=== PATIENT | female | born 1990 | race Caucasian/White ===

== ENCOUNTER 2021-06-08 04:04 | Inpatient (IN) | payer OTHER ==
[2021-06-08] MEDS ORDERED: Methylergonovine 0.2 MG/ML VIAL IM PRN (04:27)
[2021-06-08] MEDS ORDERED: Carboprost 250 MCG/ML AMP IM PRN (04:27)
[2021-06-08] MEDS ORDERED: Lidocaine 1% (PF) 30 ML VIAL SC PRN (04:27)
[2021-06-08] MEDS ORDERED: Zolpidem Tartrate 5 MG TAB PO PRN (04:27)
[2021-06-08] MEDS ORDERED: hydrALAZINE 20 MG/ML VIAL SLOW IVP PRN ×2 (04:27→13:40)
[2021-06-08] MEDS ORDERED: Misoprostol 200 MCG TAB PR PRN (04:27)
[2021-06-08] MEDS ORDERED: Diphenoxylate HCl/Atropine Tablet PO PRN (04:27)
[2021-06-08] MEDS ORDERED: Promethazine HCl 25 MG/ML VIAL IM PRN ×2 (04:27→06:02)
[2021-06-08] MEDS ORDERED: Butorphanol Tartrate 1 MG/ML VIAL SLOW IVP PRN (04:27)
[2021-06-08] MEDS ORDERED: Ondansetron PF 4 MG/2 ML Vial IVP PRN ×2 (04:27→06:02)
[2021-06-08] MEDS ORDERED: Ibuprofen 800 MG TAB PO PRN (04:27)
[2021-06-08 04:31] VITALS: BMI 29.6
[2021-06-08 05:04] LABS: Hemoglobin 12.1 g/dL (12.0-15.5); Mean Corpuscular HGB CONC 31.1 g/dL (32.0-36.0); Mean Corpuscular Hemoglobin 27.2 pg (27.0-33.0); Mean Corpuscular Volume 87.4 fl (81.6-98.3); Mean Platelet Volume 11.9 fl (7.4-10.4); Platelet Count 166 10x3/uL (150-450); RBC Distribution Width 13.2 % (11.5-14.5); Red Blood Cell (RBC) Count 4.45 10x6/uL (3.90-5.03); White Blood Cell (WBC) Count 8.3 10x3/uL (3.5-10.5)
[2021-06-08] MEDS ORDERED: Fentanyl 2 mcg/Bup 0.1% Cadd 100 ML ONE (05:04)
[2021-06-08] MEDS ORDERED: Hydrocerin (Eucerin) Cream 120 gm Jar TOP PRN (06:02)
[2021-06-08] MEDS ORDERED: Lactated Ringer's 500 ML IV PRN (06:02)
[2021-06-08] MEDS ORDERED: diphenhydrAMINE 50 MG/ML VIAL IVP PRN (06:02)
[2021-06-08] MEDS ORDERED: Acetaminophen 325 MG TAB PO PRN (06:02)
[2021-06-08] MEDS ORDERED: Naloxone HCl 0.4 mg/ml Vial IVP PRN ×2 (06:02)
[2021-06-08] MEDS ORDERED: ePHEDrine Sulfate 50 MG/10 ML VIAL SLOW IVP PRN (06:02)
[2021-06-08] MEDS ORDERED: Fentanyl 2 mcg/Bupivacaine 0.1% Cassette 100 ML EPIDURAL SCH (06:15)
[2021-06-08] MEDS ORDERED: Communication Order-Pharmacy FS SCH (06:15)
[2021-06-08 06:18] LABS: Syphilis Antibody Nonreactive (Nonreactive); Syphilis Antibody Index 0.05 S/CO (<1.00 Non-Reactive)
[2021-06-08 06:19] LABS: Hep B Surf Ag Non-Reactive S/CO (NonReactive)
[2021-06-08 06:30] LABS: HBSAg Index 0.23 S/CO (0-0.99)
[2021-06-08] MEDS ORDERED: Bupivacaine 0.25% HCL 30 ML VIAL ONE (08:00)
[2021-06-08] MEDS ORDERED: ePHEDrine Sulfate 50 MG/10 ML VIAL ONE (08:00)
[2021-06-08] MEDS: NS w/ Oxytocin 30 units 500 ML IV SCH ×2 (08:19→13:47)
[2021-06-08] MEDS: Lactated Ringer's 1,000 ML IV SCH ×2 (08:22→16:56)
[2021-06-08 08:52] LABS: SARS-CoV-2 NAA Rapid Test DETECTED (NotDetected)
[2021-06-08] MEDS ORDERED: Bisacodyl 10 MG SUPP PR PRN (13:40)
[2021-06-08] MEDS ORDERED: Milk Of Magnesia 30 ML UDCUP PO PRN (13:40)
[2021-06-08] MEDS ORDERED: traMADol HCl 50 MG TAB PO PRN (13:40)
[2021-06-08] MEDS ORDERED: Boostrix 0.5 ML (Tdap) VIAL IM ONE (13:40)
[2021-06-08] MEDS ORDERED: Benzocaine-Menthol 82.5 ML CAN TOP PRN (13:40)
[2021-06-08] MEDS: Ibuprofen 800 MG TAB PO SCH ×2 (15:27→22:43)
[2021-06-08] MEDS: Ferrous Sulfate 325 MG TAB PO SCH (16:57)
[2021-06-08] MEDS: Docusate Calcium (SURFAK) 240 MG CAP PO SCH (21:22)
[2021-06-09] MEDS: Ibuprofen 800 MG TAB PO SCH ×3 (05:08→21:50)
[2021-06-09] MEDS: Ferrous Sulfate 325 MG TAB PO SCH ×2 (08:37→16:56)
[2021-06-09] MEDS: Docusate Calcium (SURFAK) 240 MG CAP PO SCH ×2 (09:00→21:50)
[2021-06-09] MEDS ORDERED: Lanolin Ointment 7 GM TUBE TOP PRN (15:50)
[2021-06-10] MEDS: Ibuprofen 800 MG TAB PO SCH (05:33)
[2021-06-10] MEDS: Ferrous Sulfate 325 MG TAB PO SCH (07:27)
[2021-06-10 07:53] VITALS: BP 111/70; TEMP 98.2
[2021-06-10] MEDS: Docusate Calcium (SURFAK) 240 MG CAP PO SCH (08:28)
== END 2021-06-10 13:15 | disposition home or self-care (01) | DRG 805 ==
LOC: CSHLD/OP 04:04 → CSHLD 04:05 → CSHPP 16:20
PROVIDERS: ADMIT Obstetrics & Gynecology; ATTEND Obstetrics & Gynecology
PROC: 10E0XZZ Delivery of Products of Conception, External Approach (ICD-10-PCS; principal; 2021-06-09)
PROC: 0KQM0ZZ Repair Perineum Muscle, Open Approach (ICD-10-PCS; 2021-06-09)
DX: O98.52 Other viral diseases complicating childbirth (principal); U07.1 COVID-19; Z37.0 Single live birth; O70.1 Second degree perineal laceration during delivery; Z3A.40 40 weeks gestation of pregnancy
CPT/HCPCS: 36415; 51702; 85027; 86780; 86850; 86900; 86901; 87340; 99285; J2001; J2590; J7120; S0020; U0002

== ENCOUNTER 2022-10-12 10:24 | Inpatient (IN) | payer OTHER ==
[2022-10-12] MEDS ORDERED: HYDROcodone/Acetaminophen 5/325 mg Tablet PO PRN (10:53)
[2022-10-12] MEDS ORDERED: hydrALAZINE 20 MG/ML VIAL SLOW IVP PRN ×2 (10:53→14:18)
[2022-10-12] MEDS ORDERED: Ibuprofen 800 MG TAB PO PRN (10:53)
[2022-10-12] MEDS ORDERED: Butorphanol Tartrate 1 MG/ML VIAL SLOW IVP PRN (10:53)
[2022-10-12] MEDS ORDERED: Lidocaine 1% (PF) 30 ML VIAL SC PRN (10:53)
[2022-10-12] MEDS ORDERED: Ondansetron PF 4 MG/2 ML Vial IVP PRN ×2 (10:53→12:25)
[2022-10-12] MEDS ORDERED: Promethazine HCl 25 MG/ML VIAL IM PRN ×2 (10:53→12:25)
[2022-10-12] MEDS ORDERED: Acetaminophen 500 MG TAB PO PRN (10:53)
[2022-10-12] MEDS ORDERED: NS w/ Oxytocin 30 units 500 ML IV SCH ×3 (11:00)
[2022-10-12] MEDS ORDERED: Lactated Ringer's 1,000 ML IV SCH (11:00)
[2022-10-12 11:29] VITALS: BMI 31.3
[2022-10-12 11:43] LABS: Hemoglobin 11.2 g/dL (12.0-15.5); Mean Corpuscular Hemoglobin 27.3 pg (27.0-33.0); Mean Corpuscular Volume 85.4 fl (81.6-98.3); Mean Platelet Volume 12.2 fl (7.4-10.4); Platelet Count 144 10x3/uL (150-450); White Blood Cell (WBC) Count 6.7 10x3/uL (3.5-10.5)
[2022-10-12] MEDS ORDERED: Bupivacaine/Epinephrine 0.25% 30 ML VIAL ONE (12:10)
[2022-10-12] MEDS ORDERED: Fentanyl 2 mcg/Bup 0.1% Cadd 100 ML ONE (12:13)
[2022-10-12] MEDS ORDERED: Moisturizing Cream (Eucerin) 113 GM JAR TOP PRN (12:25)
[2022-10-12] MEDS ORDERED: Acetaminophen 325 MG TAB PO PRN (12:25)
[2022-10-12] MEDS ORDERED: Lactated Ringer's 500 ML IV PRN (12:25)
[2022-10-12] MEDS ORDERED: Naloxone HCl 0.4 mg/ml Vial IVP PRN ×2 (12:25)
[2022-10-12] MEDS ORDERED: ePHEDrine Sulfate 50 MG/10 ML VIAL SLOW IVP PRN (12:25)
[2022-10-12] MEDS ORDERED: diphenhydrAMINE 50 MG/ML VIAL IVP PRN (12:25)
[2022-10-12] MEDS ORDERED: Communication Order-Pharmacy FS SCH (12:30)
[2022-10-12] MEDS ORDERED: Fentanyl 2 mcg/Bupivacaine 0.1% Cassette 100 ML EPIDURAL SCH (12:30)
[2022-10-12 12:50] LABS: Syphilis Antibody Nonreactive (Nonreactive); Syphilis Antibody Index 0.03 S/CO (<1.00 Non-Reactive)
[2022-10-12 12:54] LABS: HBSAg Index 0.11 S/CO (0-0.99); Hep B Surf Ag - L&D Non-Reactive S/CO (NonReactive)
[2022-10-12] MEDS ORDERED: Milk Of Magnesia 30 ML UDCUP PO PRN (14:18)
[2022-10-12] MEDS ORDERED: Boostrix 0.5 ML (Tdap) VIAL (>/=7 yrs of age) IM ONE (14:18)
[2022-10-12] MEDS ORDERED: traMADol HCl 50 MG TAB PO PRN (14:18)
[2022-10-12] MEDS ORDERED: Benzocaine-Menthol 82.5 ML CAN TOP PRN (14:18)
[2022-10-12] MEDS ORDERED: Misoprostol 200 MCG TAB VAG PRN (14:18)
[2022-10-12] MEDS ORDERED: Bisacodyl 10 MG SUPP PR PRN (14:18)
[2022-10-12] MEDS ORDERED: diphenhydrAMINE 25 MG CAP PO PRN (14:18)
[2022-10-12] MEDS: Ferrous Sulfate 325 MG TAB PO SCH (17:10)
[2022-10-12] MEDS: Docusate 100 MG CAP PO SCH (21:17)
[2022-10-12] MEDS: Ibuprofen 800 MG TAB PO SCH (21:17)
[2022-10-13] MEDS: Ibuprofen 800 MG TAB PO SCH ×2 (05:01→13:33)
[2022-10-13 07:24] LABS: #Monocytes 0.4 10x3/uL (0.0-1.1); %Basophils 0.3 % (0.0-2.0); %Eosinophils 0.6 % (0.0-6.0); %Lymphocytes 18.9 % (18.0-47.0); %Monocytes 5.6 % (0.0-10.0); Hemoglobin 10.4 g/dL (12.0-15.5); Mean Corpuscular Volume 84.4 fl (81.6-98.3); Mean Platelet Volume 11.6 fl (7.4-10.4); Platelet Count 125 10x3/uL (150-450); Red Blood Cell (RBC) Count 3.85 10x6/uL (3.90-5.03); White Blood Cell (WBC) Count 6.8 10x3/uL (3.5-10.5)
[2022-10-13] MEDS: Ferrous Sulfate 325 MG TAB PO SCH ×2 (08:37→16:43)
[2022-10-13] MEDS: Prenatal Vitamin 1 TAB PO SCH (08:39)
[2022-10-13] MEDS: Docusate 100 MG CAP PO SCH (08:39)
[2022-10-14] MEDS: Ibuprofen 800 MG TAB PO SCH ×3 (00:15→17:08)
[2022-10-14] MEDS: Docusate 100 MG CAP PO SCH ×2 (01:33→08:02)
[2022-10-14 07:43] VITALS: BP 115/69; TEMP 97.7
[2022-10-14] MEDS: Ferrous Sulfate 325 MG TAB PO SCH ×3 (07:47→17:09)
[2022-10-14] MEDS: Prenatal Vitamin 1 TAB PO SCH (08:02)
== END 2022-10-14 17:30 | disposition home or self-care (01) | DRG 807 ==
LOC: CSHLD/OP 10:24 → CSHLD 13:59 → CSHPP 16:50
PROVIDERS: ADMIT Obstetrics & Gynecology; ATTEND Obstetrics & Gynecology
PROC: 10E0XZZ Delivery of Products of Conception, External Approach (ICD-10-PCS; principal; 2022-10-12)
PROC: 0HQ9XZZ Repair Perineum Skin, External Approach (ICD-10-PCS; 2022-10-12)
DX: O70.0 First degree perineal laceration during delivery (principal); Z37.0 Single live birth; Z3A.40 40 weeks gestation of pregnancy
CPT/HCPCS: 36415; 51702; 85025; 85027; 86780; 86850; 86900; 86901; 87340; 99285; J2590